=== PATIENT | female | born 1960 | race Caucasian/White ===

== ENCOUNTER → 2016-10-28 | Outpatient (CLI) | payer OTHER ==
--- NOTE | ~2016-10-28 | EKG ---
PATIENT: JOSÉ LUIS ANGLIN UNIT #: [id number] Ventricular Rate: 75 BPM Atrial Rate: 75 BPM P-R Interval: 152 ms QRS Duration: 78 ms Q-T Interval: 390 ms QTC Calculation(Bezet): 435 ms P [place]: -1 degrees Calculated R [place]: -12 degrees Calculated T [place]: -6 degrees Diagnosis Line: Normal sinus rhythm Diagnosis Line: Low voltage QRS Diagnosis Line: Inferior infarct , age undetermined Diagnosis Line: Abnormal ECG Diagnosis Line: When compared with ECG of 01-APR-2016 14:36, Diagnosis Line: No significant change was found Diagnosis Line: Confirmed by GIOVANNA DENNISON MD ([id number]) on 10/28/2016 Diagnosis Line: 8:05:45 PM INTERPRETING MD: JUMA MENCHACA
[2016-10-28 14:56] LABS: BUN/CREATININE RATIO 22.85; CALCIUM SERUM 8.8 mg/dL (8.4-10.2); CREATININE SERUM 0.7 mg/dL (0.6-1.4); GLOM FILT RATE Estimated 98.2 mL/min (>60); POTASSIUM 3.9 mmol/L (3.5-5.1)
== END | disposition home or self-care (01) ==
LOC: SEKG 14:16
PROVIDERS: Orthopaedic Surgery Hand Surgery
DX: Z01.818 Encounter for other preprocedural examination (principal); I10 Essential (primary) hypertension; E10.9 Type 1 diabetes mellitus without complications
CPT/HCPCS: 36415; 80048; 93005